=== PATIENT | male | born 1950 | race Caucasian/White ===

== ENCOUNTER 2018-12-15 08:12 | Outpatient (CLI) | payer MEDICARE, BC | END 2018-12-15 23:59 | disposition home or self-care (01) | LOC: STAR 08:12 | PROVIDERS: ATTEND Otolaryngology | DX: Z01.818 Encounter for other preprocedural examination (principal); J32.2 Chronic ethmoidal sinusitis; J32.0 Chronic maxillary sinusitis; I45.10 Unspecified right bundle-branch block | CPT/HCPCS: 93005 ==